=== PATIENT | female | born 1960 | race Caucasian/White ===

== ENCOUNTER 2017-05-10 09:28 | Emergency (ER) | payer BC ==
[~2017-05-10] VITALS: Wt 108.0 kg
[2017-05-10] MEDS ORDERED: LIDOCAINE 2% (MDV) 20 ML INJ INJ ONE (11:00)
[2017-05-10] MEDS ORDERED: SULF1TAB31 PO (11:33)
[2017-05-10] MEDS ORDERED: CEPH-443 PO (11:33)
--- NOTE | 2017-05-10 12:22 | ERD ---
ER Documentation Chief Complaint Date/Time DATE: 05/10/17 TIME: 12:18 Chief Complaint CYST ON STERNAL AREA X1 YEAR HPI This is a 56-year-old female presents to the ER with a cyst to her chest over the last year. Patient has a history of sebaceous cyst, states that over the last 2 days area has become red, tender to palpation and warm to the touch. She has had a drain in the past and states that this was similar. She denies any fevers or chills. ROS 12 point review of systems was done, all negative except per HPI. Medications Home Meds Active Scripts Cephalexin* (Keflex*) 500 Mg Capsule, 500 MG PO BID for 7 Days, CAP Prov:ERIN BOBO C 05/10/17 Sulfamethoxazole/Trimethoprim* (Bactrim Ds* Tablet) 1 Each Tablet, 1 TAB PO BID , #14 TAB Prov:ALLYSON BOBONA C 05/10/17 Allergies Allergies: Coded Allergies: No Known Allergy (Unverified , 05/10/17) PMhx/Soc Medical and Surgical Hx: pt denies Medical Hx, pt denies Surgical Hx History of Surgery: No Anesthesia Reaction: No Hx Neurological Disorder: No Hx Respiratory Disorders: No Hx Cardiac Disorders: No Hx Psychiatric Problems: No Hx Miscellaneous Medical Probl: No Hx Alcohol Use: No Hx Substance Use: No Hx Tobacco Use: No Smoking Status: Never smoker Physical Exam Vitals Vital Signs Date Time Temp Pulse Resp B/P Pulse Ox O2 Delivery O2 Flow Rate FiO2 05/10/17 09:30 97.8 92 17 142/89 97 Physical Exam GENERAL: The patient is well developed and appropriate for usual state of health , in no apparent distress. HEENT: Atraumatic. CHEST: Clear to auscultation bilaterally. There are no rales, wheezes or rhonchi. HEART: Regular rate and rhythm. No murmurs, clicks, rubs or gallops. NEURO: Alert and oriented. SKIN: There is a small 2 cm x 3 cm area of fluctuance to the chest. Very minor surrounding erythema, area is warm to the touch. It is also warm to the touch. Results 24 hrs Current Medications Medications (Trade) Dose Ordered Sig/Symone Route PRN Reason Start Time Stop Time Status Last Admin Dose Admin Lidocaine (Xylocaine 2% (Mdv) 20 ml) 20 ml ONCE ONCE INJ 05/10/17 11:00 05/10/17 11:01 DC Procedures/MDM Abscess Incision and Drainage with irrigation by me: Location: chest Anesthesia: 2% lidocaine Technique: Copious purulent discharge was taken out. Packin/4 inch iodoform Complications: Neurovascularly intact post procedure 48 hour wound check. Scar minimization instructions given. Patient's skin symptoms have stabilized while they have been evaluated in the department and are appropriate for outpatient care and work up. Exam and w/u not consistent w/ sepsis, deep space infection, or foreign body. This is a 56-year-old female presents to the ER with a cyst to her chest over the last year. Area was fluctuant, and therefore I indeed with no complications. Patient states that she did have some chest pain after the procedure, EKG was taken and read by Dr. Bailey 71bpm no ST elevation or t wave inversion. Patient likely has chest pain secondary to incision and drainage as the cyst was on the chest. Patient will be sent home with Bactrim and Keflex. She is to follow-up with her primary care doctor within 1-2 days return to ER sooner if symptoms worsen. My medical decision making shared with the patient she understands and agrees with plan. Departure Diagnosis: Primary Impression: Abscess Condition: Stable Patient Instructions: Abscess, Incision And Drainage Additional Instructions: Return to this facility in 2 DAYS for a follow-up exam.Return sooner if your condition worsens. ERIN BOBO May 10, 2017 12:22
== END 2017-05-10 11:41 | disposition home or self-care (01) ==
LOC: FTE 09:28
DX: L02.213 Cutaneous abscess of chest wall (principal); R07.9 Chest pain, unspecified
CPT/HCPCS: 10061; 93005; 99284; Z7610

== ENCOUNTER 2017-08-22 17:11 | Emergency (ER) | payer BC ==
[~2017-08-22] VITALS: Ht 157.5 cm; Wt 112.6 kg
[~2017-08-22 17:11] MED LIST: CEPH-443 PO; SULF1TAB31 PO
[2017-08-22 17:16] VITALS: Ht 157.5 cm; Wt 112.6 kg
[2017-08-22 20:09] LABS: URINE BLOOD (Dip) POC Trace-lysed (NEGATIVE)
[2017-08-22 20:10] VITALS: BP 177/91; PULSE 78; RESP 18; TEMP 98.7
[2017-08-22] MEDS ORDERED: HYDROmorphONE 1 MG/ML SYG IV STA (20:31)
[2017-08-22] MEDS ORDERED: ONDANSETRON 4 MG INJ IV STA (20:31)
[2017-08-22] MEDS ORDERED: METHYLPREDNISOLONE 125 MG INJ IV ONE (21:00)
[2017-08-22] MEDS ORDERED: BENA5TAB2 PO (21:17)
[2017-08-22] MEDS ORDERED: LORA10TA3 PO (21:17)
[2017-08-22] MEDS ORDERED: METF500T4 PO (21:17)
[2017-08-22] MEDS ORDERED: ATOR20TA38 PO (21:18)
[2017-08-22] MEDS ORDERED: ASPI-664 PO (21:18)
[2017-08-22] MEDS ORDERED: GLIP5TAB13 PO (21:18)
[2017-08-22] MEDS ORDERED: MELO-210 PO (21:19)
[2017-08-22] MEDS ORDERED: IBUP800T25 PO (22:03)
[2017-08-22] MEDS ORDERED: HYDR-902 PO (22:03)
[2017-08-22] MEDS ORDERED: METH750T93 PO (22:03)
--- NOTE | 2017-08-22 22:08 | ERD ---
ER Documentation Chief Complaint Chief Complaint left back pain HPI This is a 56-year-old female complains of 5-6 days of pain around her left upper scapula that radiates down the left arm she says the pain is also in the left trapezius and left neck. The pain is described as sharp and nonradiating but worse with movement. Is worse with movement of the trunk and worse with movement of the left upper extremity. She says on occasion she feels a shooting pain that goes down her left arm especially with certain movements of her head or movements of her shoulder. Denies any trauma or repetitive motion. ROS All systems reviewed and are negative except as per history of present illness. Medications Home Meds Active Scripts Ibuprofen* (Motrin*) 800 Mg Tab, 800 MG PO Q6H Y for PAIN AND OR ELEVATED TEMP, #30 TAB Prov:CHITRA OJEDA DO 08/22/17 Methocarbamol* (Robaxin*) 750 Mg Tablet, 750 MG PO TID, #20 TAB Prov:CHITRA OJEDA DO 08/22/17 Hydrocodone/Acetaminophen ([place] 10-325 Tablet) 1 Each Tablet, 1 TAB PO Q6H Y for PAIN, #20 TAB Prov:CHITRA OJEDA DO 08/22/17 Reported Medications Meloxicam* (Mobic*) 15 Mg Tablet, 15 MG PO DAILY, #30 TAB 08/22/17 Atorvastatin Calcium* (Atorvastatin Calcium*) 20 Mg Tablet, 20 MG PO QHS, #30 TAB 08/22/17 Aspirin* (Aspirin* EC) 81 Mg Tablet.dr, 81 MG PO DAILY, TAB 08/22/17 Glipizide* (Glipizide*) 5 Mg Tablet, 5 MG PO AC BREAKFAST DINNER, TAB 08/22/17 Benazepril Hcl* (Benazepril Hcl*) 5 Mg Tablet, 5 MG PO DAILY, #30 TAB 08/22/17 Metformin Hcl* (Metformin Hcl*) 500 Mg Tablet, 500 MG PO WITH BREAKFAST DINNE, # 60 TAB 08/22/17 Loratadine* (Loratadine*) 10 Mg Tablet, 10 MG PO DAILY, #30 TAB 08/22/17 Discontinued Scripts Cephalexin* (Keflex*) 500 Mg Capsule, 500 MG PO BID for 7 Days, CAP Prov:ERIN BOBO 05/10/17 Sulfamethoxazole/Trimethoprim* (Bactrim Ds* Tablet) 1 Each Tablet, 1 TAB PO BID , #14 TAB Prov:ERIN BOBO 05/10/17 Allergies Allergies: Coded Allergies: No Known Allergy (Unverified , 08/22/17) PMhx/Soc Medical and Surgical Hx: pt denies Surgical Hx History of Surgery: No Anesthesia Reaction: No Hx Neurological Disorder: No Hx Respiratory Disorders: No Hx Cardiac Disorders: Yes (CP 5 yrs prior) Hx Psychiatric Problems: No Hx Miscellaneous Medical Probl: Yes (DM) Hx Alcohol Use: No Hx Substance Use: No Hx Tobacco Use: No Smoking Status: Never smoker FmHx Family History: No coronary disease Physical Exam Vitals Vital Signs Date Time Temp Pulse Resp B/P Pulse Ox O2 Delivery O2 Flow Rate FiO2 08/22/17 20:10 98.7 78 18 177/91 95 Room Air 08/22/17 17:16 98.1 78 18 209/103 99 Physical Exam Const: Well-developed, well-nourished Head: Atraumatic, normocephalic Eyes: Normal Conjunctiva, PERRLA, EOMI, normal sclera, no nystagmus ENT: Normal External Ears, Nose and Mouth, moist mucus membranes. Neck: Full range of motion. No meningismus, no lymphadenopathy. Resp: Clear to auscultation bilaterally, no wheezing, rhonchi, rales Cardio: Regular rate and rhythm, no murmurs, S1 S2 present Abd: Soft, non tender x 4, non distended. Normal bowel sounds, no guarding or rebound, no pulsitile abdominal masses or bruits Skin: No petechiae or rashes, no ecchymosis , no maculopapular rash Back: No midline or flank tenderness, there is reproducible tenderness with spasm to the left paracervical musculature as well as the left rhomboids. There is reproducible shooting pain on the left arm when her head is rotated to the right and the left arm is abductor Ext: No cyanosis, or edema, FROM x 4, normal inspection, neurovascularly intact x 4 Neur: Awake and alert, STR 5/5 x 4, sensation intact x 4, no focal findings, cerebellum intact Psych: Normal Mood and Affect Results 24 hrs Laboratory Tests Test 08/22/17 20:09 Bedside Urine pH (LAB) 5.5 Bedside Urine Protein (LAB) Negative Bedside Urine Glucose (UA) 0.25% Bedside Urine Ketones (LAB) Trace Bedside Urine Blood Trace-lysed Bedside Urine Nitrite (LAB) Negative Bedside Urine Leukocyte Esterase (L Trace Current Medications Medications (Trade) Dose Ordered Sig/Symone Route PRN Reason Start Time Stop Time Status Last Admin Dose Admin Hydromorphone HCl (Dilaudid) 1 mg ONCE STAT IV 08/22/17 20:31 08/22/17 20:33 DC 08/22/17 20:39 Ondansetron HCl (Zofran Inj) 4 mg ONCE STAT IV 08/22/17 20:31 08/22/17 20:33 DC 08/22/17 20:38 Methylprednisolone Sodium Succinate (Solu-Medrol) 125 mg ONCE ONCE IV 08/22/17 21:00 08/22/17 21:01 DC 08/22/17 20:38 Procedures/MDM EKG: Rate/Rhythm: Normal Sinus Rhythm,NL intervals QRS, ST, QT: NORMAL VA, QRS, QT] Impression: NORMAL EKG Patient received intravenous pain medication. I feel the patient's pain is related to her cervical radiculopathy and muscle spasm due to pinched nerve. She does not present with a cardiac issue presentation. We will treat with NSAIDs, pain control and muscle relaxants and stretching. Departure Diagnosis: Primary Impression: Cervical radiculopathy Condition: Stable Patient Instructions: Radiculopathy, Cervical CHITRA OJEDA DO Aug 22, 2017 22:08
[2017-08-24] MEDS ORDERED: TRAM50TA2 PO (06:37)
== END 2017-08-22 23:06 | disposition home or self-care (01) ==
LOC: E/R 17:11
DX: M54.12 Radiculopathy, cervical region (principal); E11.9 Type 2 diabetes mellitus without complications; Z79.82 Long term (current) use of aspirin; Z79.84 Long term (current) use of oral hypoglycemic drugs
CPT/HCPCS: 81003; 93005; 96374; 96375; 99284; J1170; J2405; J2930

== ENCOUNTER 2017-08-24 04:03 | Emergency (ER) | END 2017-08-24 06:55 | disposition home or self-care (01) ==

== ENCOUNTER 2018-06-25 14:05 | Emergency (ER) | END 2018-06-25 19:22 | disposition home or self-care (01) ==